=== PATIENT | female | born 1970 ===

== ENCOUNTER 2017-12-13 09:04 | Outpatient (CLI) | payer OTHER ==
[~2017-12-13] VITALS: Ht 157.5 cm; Wt 74.8 kg
[2017-12-13] MEDS ORDERED: CEFUROXIME500 MG PO (10:14)
[2017-12-13] MEDS ORDERED: FLONASE16 GM NASAL (10:14)
== END 2017-12-13 09:20 | disposition home or self-care (01) ==
LOC: OFIC 805 09:04
DX: J01.80 Other acute sinusitis (principal); R05 Cough; H61.22 Impacted cerumen, left ear